=== PATIENT | female | born 1960 | race Caucasian/White ===

== ENCOUNTER 2020-03-25 06:08 | Day surgery (SDC) | payer BC, OTHER ==
[~2020-03-25 06:08] MED LIST: TRANEXAMIC ACID 1000 MG/10 ML VIAL IVPUSH ONE; VANCOMYCIN 1,000 MG VIAL (RESTRICTED TO ID ONLY) IVPB ONE
[2020-03-25] MEDS ORDERED: GABAPENTIN 300 MG CAPSULE PO ONE (06:34)
[2020-03-25] MEDS ORDERED: oxyCODONE HCL 10 MG SUSTAINED ACTING TABLET PO ONE (06:34)
[2020-03-25] MEDS ORDERED: CEFAZOLIN 2 GM in DEXTROSE 5%-WATER - 50 ML IVPB ONE (06:34)
[2020-03-25] MEDS ORDERED: TRANEXAMIC ACID 1000 MG/10 ML VIAL IVPUSH ONE ×2 (06:34→10:50)
[2020-03-25] MEDS ORDERED: PANTOPRAZOLE 40 MG TABLET PO ONE (06:34)
[2020-03-25] MEDS ORDERED: CELECOXIB 200 MG CAPSULE PO ONE (06:34)
[2020-03-25 06:45] VITALS: BMI 30.4
[2020-03-25] MEDS ORDERED: SUCCINYLCHOLINE CHLORIDE 200 MG/10 ML SYRINGE ONE (07:11)
[2020-03-25] MEDS ORDERED: PROPOFOL 20 ML ONE (07:11)
[2020-03-25] MEDS ORDERED: ceFAZolin SODIUM 1 GM VIAL ONE ×2 (07:12→07:24)
[2020-03-25] MEDS ORDERED: ONDANSETRON 4 MG/2 ML VIAL ONE (07:12)
[2020-03-25] MEDS ORDERED: VANCOMYCIN 1,000 MG VIAL (RESTRICTED TO ID ONLY) ONE (07:24)
[2020-03-25] MEDS ORDERED: DEXAMETHASONE SOD PHOSPHATE/PF 10 MG/ML SDV ONE (07:25)
[2020-03-25] MEDS ORDERED: MIDAZOLAM HCL 2 MG/2 ML SINGLE DOSE VIAL ONE (07:26)
[2020-03-25] MEDS ORDERED: BUPIVACAINE HCL/PF 0.5% (5 MG/ML) 30 ML VIAL IJ ONE (07:26)
--- NOTE | 2020-03-25 07:43 | HP ---
Admitting History and Physical - Admission Chief Complaint: Right knee osteoarthritis x years History of Present Illness: 60 year old female presents today in regard to their right knee. Longstanding history of right knee osteoarthritis. Patient complains of pain, limited ROM, difficulty ambulating and difficulty completing activities of daily living. Patient has failed conservative treatment options including PO medications, injections, exercise programs and activity modification. Diagnostic testing reveals severe osteoarthritis of the right knee joint. At this point, patient would like to proceed with surgical intervention; a right total knee arthroplasty, MAKOplasty. - Past Medical History Cardiovascular: Yes: HTN Psych: Yes: Bipolar Musculoskeletal: Yes: Osteoarthritis Endocrine: Yes: Hypothyroidism - Past Surgical History Additional Past Surgical History: See written history & physical for additional history. h/o appendectomy h/o ovarian cyst removed 40 years ago h/o L knee surgery - Smoking History Smoking history: Former smoker Have you smoked in the past 12 months: No If you are a former smoker, when did you quit?: 01/30/20 Home Medications - Allergies Allergies/Adverse Reactions: Allergies Allergy/AdvReac Type Severity Reaction Status Date / Time Penicillins Allergy Severe Rash Verified 03/18/20 11:05 - Home Medications Home Medications: Ambulatory Orders Amlodipine Besylate [Norvasc -] 2.5 mg PO DAILY 03/18/20 Lamotrigine [Lamictal] 225 mg PO HS 03/18/20 Levothyroxine Sodium 137 mcg PO Q2D 03/18/20 Levothyroxine [Synthroid -] 150 mcg PO Q2D 03/18/20 [place] Carbonate [Eskalith -] 300 mg PO DAILY 03/18/20 [place] Carbonate [Eskalith -] 600 mg PO HS 03/18/20 Review of Systems - Review of Systems Musculoskeletal: reports: Crepitus (right knee), Decreased ROM (right knee), Joint Pain (right knee), Joint Swelling (right knee) Physical Examination Vital Signs: Vital Signs Temperature 98.5 F 03/25/20 06:43 Pulse Rate 60 03/25/20 06:43 Respiratory Rate 15 03/25/20 06:43 Blood Pressure 144/87 03/25/20 06:43 O2 Sat by Pulse Oximetry (%) Constitutional: Yes: Well Nourished, No Distress Eyes: Yes: Conjunctiva Clear HENT: Yes: Atraumatic Neck: Yes: Supple Cardiovascular: Yes: Regular Rate and Rhythm Respiratory: Yes: Regular Gastrointestinal: Yes: Soft ...Rectal Exam: Yes: Deferred Musculoskeletal: Yes: Joint Stiffness (right knee), Joint Swelling (right knee), Other (Limited ROM right knee) Assessment/Plan 60 year old female presents today in regard to their right knee. Longstanding history of right knee osteoarthritis. Patient complains of pain, limited ROM, difficulty ambulating and difficulty completing activities of daily living. P atient has failed conservative treatment options including PO medications, injections, exercise programs and activity modification. Diagnostic testing reveals severe osteoarthritis of the right knee joint. At this point, patient would like to proceed with surgical intervention; a right total knee arthroplasty, MAKOplasty. Pros, cons, risks, benefits & alternatives of a right total knee arthroplasty, MAKOplasty was discussed with the patient at length. Patient confirms their understanding and consents to proceed with a right total knee arthroplasty - MAKOplasty.
[2020-03-25] MEDS ORDERED: ONDANSETRON 4 MG/2 ML VIAL IVPUSH PRN ×2 (08:41→12:36)
[2020-03-25] MEDS ORDERED: oxyCODONE HCL 5 MG TABLET PO PRN (08:42)
[2020-03-25] MEDS ORDERED: LACTATED RINGERS SOLUTION 1,000 ML IV SCH ×2 (08:45→12:45)
[2020-03-25] MEDS ORDERED: THROMBIN (RECOMBINANT) 5,000 UNIT VIAL TP ONE (09:50)
[2020-03-25] MEDS ORDERED: GELATIN, ABSORBABLE 100 EACH SPONGE TP ONE (10:16)
[2020-03-25] MEDS ORDERED: THROMBIN (BOVINE) 5,000 UNIT VIAL TP ONE (10:16)
[2020-03-25] MEDS ORDERED: VANCOMYCIN 1,000 MG VIAL (RESTRICTED TO ID ONLY) IVPB ONE (10:51)
--- NOTE | 2020-03-25 11:46 | SURG ---
Surgery Synthetic Gem Press Operator Note Synthetic Gem Press Operator: Ada Sesay PA-C Date of Service: 03/25/20 Diagnosis: Right knee medial compartment OA Procedure: Yamil right knee unicondylar arthroplasty I was present for the entirety of the operative procedure. For further detail, please refer to operative report. Visit type - Case Type Case Type: Scheduled - Emergency Emergency Visit: No - New patient This patient is new to me today: Yes Date on this admission: 03/25/20
[2020-03-25] MEDS ORDERED: ACETAMINOPHEN 325 MG TABLET (FP) PO SCH (12:00)
[2020-03-25] MEDS ORDERED: traMADol HCL 50 MG TABLET ONE (12:05)
[2020-03-25] MEDS ORDERED: KETOROLAC TROMETHAMINE 30 MG/1 ML VIAL ONE (12:05)
[2020-03-25] MEDS ORDERED: ACETAMINOPHEN INJECTION 100 ML IVPB ONE (12:05)
[2020-03-25] MEDS ORDERED: traMADol HCL 50 MG TABLET PO SCH (12:30)
[2020-03-25] MEDS ORDERED: KETOROLAC TROMETHAMINE 30 MG/1 ML VIAL IVPUSH SCH (12:30)
[2020-03-25] MEDS: ACETAMINOPHEN 1000 MG/100 ML VIAL (NON FORMULARY) IVPB ONE ×2 (12:31→12:38)
[2020-03-25] MEDS ORDERED: MAG HYDROX/AL HYDROX/SIMETH 30 ML UNIT-DOSE CUP PO PRN (12:36)
--- NOTE | 2020-03-25 12:51 | OP ---
Operative Note - Note: Operative Date: 03/25/20 Pre-Operative Diagnosis: Right knee osteoarthritis Operation: Right knee medial SHERRI partial knee replacement Post-Operative Diagnosis: Same as Pre-op Surgeon: Rizwan Lawrence Rail Car Driver: Ada Sesay Anesthesia: Spinal Estimated Blood Loss (mls): 100
[2020-03-25] MEDS: oxyCODONE HCL 5 MG TABLET PO PRN (14:01)
[2020-03-25] MEDS: CEFAZOLIN 2 GM/D5W 2 GRAM/50 ML ML IVPB SCH (18:16)
--- NOTE | 2020-03-25 19:57 | SPEC ---
DATE OF OPERATION: 03/25/2020 PREOPERATIVE DIAGNOSIS: Right knee medial compartment osteoarthritis. POSTOPERATIVE DIAGNOSIS: Right knee medial compartment osteoarthritis. PROCEDURE: Right knee Makoplasty unicompartmental medial knee replacement. ATTENDING: Dylan Lee MD. CONTROL CHEMIST: DONY Yanez. ANESTHESIA: Spinal plus sedation. ESTIMATED BLOOD LOSS: 100 mL. COMPLICATIONS: None. DISPOSITION: The patient was transferred to the PACU in stable condition. IMPLANTS USED: [place]/Yamil medial partial knee replacement components size 5 femur, size 5 tibia, and 10-mm polyethylene components. INDICATION: This is a 60-year-old female who presents to the office complaining of severe right knee pain. She was seen and examined by Dr. Lee, diagnosed with severe right knee osteoarthritis. The patient stated that the entirety of her pain was along the medial joint line, and she had no pain whatsoever in the lateral and patellofemoral compartments. Radiographs confirmed that the other compartments of the knee were in fact good shape and that there was grade 4 osteoarthritis in the medial compartment. The patient was initially treated nonoperatively but failed conservative management and had continued pain and worsening ambulatory function. She was therefore indicated for a partial knee replacement. The risks, benefits, and alternatives of the procedure were explained to the patient in great detail, and she elected to proceed with the surgery. In the preoperative holding area prior to the surgery, she was again asked to describe the location of her pain, and she again stated that 100% of her arthritic pain was located in the medial compartment of the right knee, and there was no pain in the other compartments. DESCRIPTION OF PROCEDURE: The patient was seen and examined by Dr. Lee and diagnosed with isolated medial compartment osteoarthritis. The knee pain was localized to the medial joint line and there were no complaints of pain in other areas of the knee. Because of failure of initial conservative treatment, the patient was indicated for a partial knee replacement. The risks, benefits and alternatives of the procedure were explained in great detail and the patient elected to proceed with surgery. These risks included, but are not limited to, anesthesia risks, scarring, instability, stiffness, infection, pulmonary embolus, deep vein thrombosis, intraoperative fracture, intraoperative neurovascular injury, problems with wound healing, failed procedure, persistent pain, nerve injury, possibility of lower limb numbness and weakness, the need for possible subsequent salvage surgeries, persistent limp, disability and . On the day of surgery the patient was taken to the operating room and placed on the OR table. Spinal anesthesia was administered by the anesthesiologist. The patient was then positioned supine on the table and all bony prominences were padded. A nonsterile tourniquet was placed on the proximal thigh of the operative leg. The knee was then prepped and draped in the usual sterile fashion and intravenous antibiotics were given for infection prophylaxis. A surgical time out was then performed with the team and the patient's identify, procedure, side, availability of implants and the administration of antibiotics was confirmed. With the knee flexed, an 8 cm incision was made just slightly medial to the midline and carried down through the subcutaneous fat to the underlying retinaculum. Electrocautery was used to achieve hemostasis. A limited medial parapatellar arthrotomy was performed. This was followed by a subperiosteal dissection of the tissue off the proximal medial tibia. A portion of fat pad was removed from under the patellar tendon to improve visualization and a small portion of fat was excised off the distal supracondylar femur. The knee was then flexed further and the anterior horn of the medial meniscus was released. Grade 4 changes were noted diffusely throughout the medial compartment. The lateral compartment appeared to be in good condition. Femoral and tibial checkpoints were then placed in the appropriate location using a mallet. Two parallel bicortical self-drilling pins were placed in the proximal tibia after making stab incisions and bluntly dissecting down to bone. These were positioned approximately 10 cm distal to the tibial tubercle. Two pins were then placed in the proximal femur using the same technique. These were located approximately 10 cm proximal to the superior pole of the patella. The [place] navigation arrays were then attached to both the femoral and tibial pins and the lower extremity was then registered to the robotic navigation device using various joint movements, as well as inputting approximately 50 checkpoints. The knee was then taken through a full range of motion with a corrective valgus force applied. Alignment in varus/valgus was measured at 0, 30, 60, 90 and 120 degrees of flexion to determine soft tissue balance in all of these positions. The navigation device showed appropriate tracking of the virtual components on the screen, as well as a graphic representation of the soft tissue balance. The components were repositioned virtually using the software until optimal soft tissue balance was achieved. Once this was accomplished, the final plan was saved and sent to the robot. Retractors were then placed around the distal femur. The robot was brought into the sterile field and registered with the navigation device. The robotic arm with a mily was then used to remove the appropriate amount of bone from the femur and tibia as per the saved software plan. The knee was then irrigated. Trial components were placed and the knee was taken through a full range of motion to assess soft tissue balance and alignment. The tracking and range of motion were found to be excellent and the soft tissue balance was optimal and according to plan. All trial components were then removed and an Esmarch bandage was used to exsanguinate the leg. The tourniquet was inflated in preparation for cementing. All bony surfaces were cleaned with pulsatile lavage and dried. Bone cement was then prepared on the back table and final components were cemented in place in the usual fashion. Extruded cement was removed. Once the cement had hardened, the knee was taken through a full range of motion to assess stability, balance and patellar tracking. These were found to be optimal. The trial polyethylene was exchanged for a final implant. Medial and inferior osteophytes were debrided off the patella (patelloplasty). The navigation arrays and [place]ev[place] pins were removed from the femur and tibia. All wounds were then thoroughly irrigated with normal saline. A periarticular injection was used to locally infiltrate the capsular tissues surrounding the implant and prosthesis. A 1 Vicryl and 0 V-Gurvinder 180 barbed sutures were used to close the arthrotomy. 2-0 Vicryl sutures were used in the subcutaneous tissues. The skin was closed using both 3-0 V-Gurvinder 90 suture in a running subcuticular fashion and Dermabond skin adhesive. 4-0 undyed Vicryl and Dermabond skin adhesive was used to close the stab incisions made for the navigation pins. Once this was completed, sterile Aquacel dressings were applied to each incision site. A compressive dressing was applied. The tourniquet was then deflated and the patient was awakened and went to the PACU in stable condition. DYLAN LEE M.D. JO ANN/[id number]
[2020-03-25] MEDS ORDERED: DEXAMETHASONE SOD PHOSPHATE 10 MG/1 ML VIAL IVPB ONE (20:00)
[2020-03-25] MEDS: ACETAMINOPHEN 325 MG TABLET (FP) PO SCH (20:00)
[2020-03-25] MEDS: traMADol HCL 50 MG TABLET PO SCH (20:52)
[2020-03-25] MEDS: KETOROLAC TROMETHAMINE 30 MG/1 ML VIAL IVPUSH SCH (20:54)
[2020-03-25] MEDS ORDERED: DEXAMETHASONE SOD PHOSPHATE 10 MG/1 ML VIAL ONE (21:41)
[2020-03-25] MEDS ORDERED: PT OWN MED DRAWER 7, Y5N ONE (21:42)
[2020-03-25] MEDS: SENNOSIDES/DOCUSATE COMBO (SENNA PLUS) TABLET (UD) PO SCH (21:51)
[2020-03-25] MEDS: GABAPENTIN 300 MG CAPSULE PO SCH (21:52)
[2020-03-25] MEDS: oxyCODONE HCL 10 MG SUSTAINED ACTING TABLET PO SCH (21:52)
[2020-03-25] MEDS: CELECOXIB 200 MG CAPSULE PO SCH (21:52)
[2020-03-25] MEDS: ASCORBIC ACID 500 MG TABLET (FP) PO SCH (21:52)
[2020-03-25] MEDS ORDERED: LAMOTRIGINE 200 MG, LAMOTRIGINE 25 MG PO SCH (22:00)
[2020-03-25] MEDS ORDERED: LITHIUM CARBONATE 300 MG CAPSULE (FP) PO SCH (22:00)
[2020-03-26] MEDS: oxyCODONE HCL 5 MG TABLET PO PRN
[2020-03-26] MEDS: KETOROLAC TROMETHAMINE 30 MG/1 ML VIAL IVPUSH SCH ×2 (02:00→09:00)
[2020-03-26] MEDS: ACETAMINOPHEN 325 MG TABLET (FP) PO SCH ×4 (02:00→21:47)
[2020-03-26] MEDS: CEFAZOLIN 2 GM/D5W 2 GRAM/50 ML ML IVPB SCH (02:00)
[2020-03-26] MEDS: traMADol HCL 50 MG TABLET PO SCH ×4 (06:12→20:47)
[2020-03-26] MEDS ORDERED: LEVOTHYROXINE NA 150 MCG TABLET PO SCH (07:00)
[2020-03-26] MEDS ORDERED: ASPIRIN 325 MG TABLET PO SCH (08:00)
[2020-03-26 08:06] LABS: HEMOGLOBIN 11.3 GM/dl (10.7-15.3); MCH 30.8 pg (25.7-33.7); MCHC 33.1 g/dl (32.0-36.0); MEAN PLT VOLUME 7.7 fl (7.5-11.1); PLATELET COUNT 325 K/MM3 (134-434); RBC 3.66 M/mm3 (3.60-5.2); WHITE BLOOD COUNT 15.1 K/mm3 (4.0-10.8)
[2020-03-26 08:09] LABS: CALCIUM 9.3 mg/dl (8.5-10); POTASSIUM 4.6 mmol/L (3.5-5.1)
[2020-03-26] MEDS: SENNOSIDES/DOCUSATE COMBO (SENNA PLUS) TABLET (UD) PO SCH (09:32)
[2020-03-26] MEDS: CELECOXIB 200 MG CAPSULE PO SCH (09:33)
[2020-03-26] MEDS: ASCORBIC ACID 500 MG TABLET (FP) PO SCH (09:33)
[2020-03-26] MEDS: GABAPENTIN 300 MG CAPSULE PO SCH (09:34)
[2020-03-26] MEDS ORDERED: amLODIPine BESYLATE 2.5 MG TABLET (FP) PO SCH (10:00)
[2020-03-26] MEDS ORDERED: MULTIVITAMINS (DAILY MVI) TABLET (FP) PO SCH (10:00)
[2020-03-26] MEDS ORDERED: PANTOPRAZOLE 40 MG TABLET PO SCH (10:00)
[2020-03-26] MEDS ORDERED: LITHIUM CARBONATE 300 MG CAPSULE (FP) PO SCH (10:00)
[2020-03-26] MEDS: oxyCODONE HCL 10 MG SUSTAINED ACTING TABLET PO SCH (10:55)
--- NOTE | 2020-03-26 14:20 | PN ---
Progress Note (short form) - Note Progress Note: Anesthesia postop note 60 y/o F s/p spinal anesthesia/pnb for knee surgery POD#2, vss, aaox3, no complaints. no anesthesia complications.
[2020-03-26] MEDS ORDERED: PT OWN MED DRAWER 7, Y5N ONE ×2 (16:26→20:50)
[2020-03-26 18:11] VITALS: BP 124/55; PULSE 76; TEMP 98
[2020-03-27] MEDS ORDERED: LEVOTHYROXINE 112 MCG, LEVOTHYROXINE 25 MCG PO SCH (07:00)
== END 2020-03-26 21:15 | disposition home health service (06) ==
LOC: FASUSAT 06:08 → FM/S 13:50 → FASUSAT 03-26 21:15
PROVIDERS: ATTEND Student in an Organized Health Care Education/Training Program
PROC: 8E0YXBZ Computer Assisted Procedure of Lower Extremity (ICD-10-PCS; 2020-03-25)
PROC: 8E0Y0CZ Robotic Assisted Procedure of Lower Extremity, Open Approach (ICD-10-PCS; 2020-03-25)
PROC: 0SRC0L9 Replacement of Right Knee Joint with Medial Unicondylar Synthetic Substitute, Cemented, Open Approach (ICD-10-PCS; principal; 2020-03-25 09:06)
DX: M17.11 Unilateral primary osteoarthritis, right knee (principal); I10 Essential (primary) hypertension; E03.9 Hypothyroidism, unspecified; F31.9 Bipolar disorder, unspecified; Z87.891 Personal history of nicotine dependence
CPT/HCPCS: 20985; 27446; C1776; S2900; 36415; 73560-TC-RT-FY; 80048; 85027; 94760; 97010-GP; 97116-GP; 97163-GP; J0131; J1100